=== PATIENT | female | born 1945 | race Caucasian/White ===

== ENCOUNTER 2016-08-06 08:19 | Day surgery (SDC) | payer MEDICARE, MEDICAID ==
[~2016-08-06] VITALS: Ht 162.6 cm; Wt 74.8 kg
== END 2016-08-06 13:40 | disposition home or self-care (01) ==
LOC: RAD.S 08:19 → EDSTATUS 10:00 → RAD.S 10:00
PROC: 0BBJ3ZX Excision of Left Lower Lung Lobe, Percutaneous Approach, Diagnostic (ICD-10-PCS; principal; 2016-08-06)
DX: R91.1 Solitary pulmonary nodule (principal); J93.9 Pneumothorax, unspecified; J84.10 Pulmonary fibrosis, unspecified; J44.9 Chronic obstructive pulmonary disease, unspecified; Z88.1 Allergy status to other antibiotic agents; Z79.899 Other long term (current) drug therapy; Z79.82 Long term (current) use of aspirin; Z85.3 Personal history of malignant neoplasm of breast; Z88.8 Allergy status to other drugs, medicaments and biological substances

== ENCOUNTER 2016-08-08 10:29 | Day surgery (SDC) | payer MEDICARE, MEDICAID ==
[~2016-08-08] VITALS: Ht 162.6 cm
== END 2016-08-08 12:40 | disposition home or self-care (01) ==
LOC: RAD.S 10:29
PROC: 0W9B30Z Drainage of Left Pleural Cavity with Drainage Device, Percutaneous Approach (ICD-10-PCS; principal; 2016-08-08)
DX: Z46.82 Encounter for fitting and adjustment of non-vascular catheter (principal); J93.9 Pneumothorax, unspecified; Z88.1 Allergy status to other antibiotic agents; Z88.6 Allergy status to analgesic agent; Z88.8 Allergy status to other drugs, medicaments and biological substances; Z79.82 Long term (current) use of aspirin; Z79.899 Other long term (current) drug therapy

== ENCOUNTER 2016-08-09 06:42 | Emergency (ER) | payer MEDICARE, MEDICAID ==
--- NOTE | 2016-08-09 16:10 | ER ---
ADMIT: 08/09/2016 RM/LOC: ER [facility] MR#: [id number] [facility] [facility] [place], [place] [id number] [address] [place] [address] Emergency Room Report SEX: F AGE: 71 : 1945 DATE: 08/09/2016 TIME: 0642 hours. Please refer to my T-sheet for complete H and P. Briefly, patient is a 71-year- old who comes in to Emergency Department complaining of just tired and weak. She has kind of had a hectic week. Saturday she had a lung biopsy. She ended up getting pneumothorax where she has a chest tube that was placed yesterday with a flutter valve. She says she does not have any significant chest pain. She just does not feel well and wanted to checked out this morning because last time, she had knew her lung had collapsed and did not feel like she was short of breath. PHYSICAL EXAM: VITAL SIGNS: Blood pressure is 148/85, pulse 88, respirations 20, temp 96.9, and sat 95%. GENERAL: No acute distress. HEENT: Grossly normal. LUNGS: Actually clear. HEART: Regular. ABDOMEN: Soft. SKIN: Rash. EMERGENCY DEPARTMENT COURSE: Her EKG was sinus rhythm, rate 76, no changes. Chest x-ray, no acute disease. CBC normal. Chemistries normal except potassium 3.3. Troponin negative. UA normal. Reassured her. We changed her dressing, she was ready for discharge. ASSESSMENT: 1. General weakness. 2. Status post lung biopsy and chest tube. Everything checked out at this time. I reassured. She felt comfortable going home. PLAN: Follow up with her primary. Return if worse. Continue care. Dexter Soliman MD/ skyler JOB #: [id number] CC: Dexter Soliman MD, Attending Physician UNKNOWN, Family Physician
== END 2016-08-09 17:20 | disposition home or self-care (01) ==
LOC: ER 06:42
DX: R53.1 Weakness (principal); F17.210 Nicotine dependence, cigarettes, uncomplicated; Z85.3 Personal history of malignant neoplasm of breast

== ENCOUNTER → 2016-08-13 | Outpatient (CLI) | payer MEDICARE, MEDICAID | END | disposition home or self-care (01) | LOC: RAD.S 10:01 | PROC: 0WPB33Z Removal of Infusion Device from Left Pleural Cavity, Percutaneous Approach (ICD-10-PCS; principal; 2016-08-13) | DX: J93.9 Pneumothorax, unspecified (principal) ==

== ENCOUNTER → 2016-08-21 | Outpatient (CLI) | payer MEDICARE, MEDICAID | END | disposition home or self-care (01) | LOC: RAD.S 08-20 17:00 | DX: R06.02 Shortness of breath (principal); J43.9 Emphysema, unspecified ==

== ENCOUNTER → 2016-09-07 | Outpatient (CLI) | payer MEDICARE, MEDICAID | END | disposition home or self-care (01) | LOC: RAD.S 09-05 08:30 | DX: R13.10 Dysphagia, unspecified (principal); K22.4 Dyskinesia of esophagus ==

== ENCOUNTER → 2016-10-05 | Outpatient (CLI) | payer MEDICARE, MEDICAID | END | disposition home or self-care (01) | LOC: RAD.S 10:53 | DX: R06.02 Shortness of breath (principal) ==

== ENCOUNTER → 2016-11-13 | Outpatient (CLI) | payer MEDICARE, MEDICAID | END | disposition home or self-care (01) | LOC: RAD.S 09:19 | DX: Z12.31 Encounter for screening mammogram for malignant neoplasm of breast (principal); R92.1 Mammographic calcification found on diagnostic imaging of breast; Z98.890 Other specified postprocedural states; Z85.3 Personal history of malignant neoplasm of breast ==

== ENCOUNTER → 2016-11-22 | Outpatient (CLI) | payer MEDICARE, MEDICAID | END | disposition home or self-care (01) | LOC: RAD.S 13:30 | DX: J44.9 Chronic obstructive pulmonary disease, unspecified (principal); R91.8 Other nonspecific abnormal finding of lung field ==